=== PATIENT | female | born 1975 | race Caucasian/White ===

== ENCOUNTER → 2020-12-11 | Outpatient (CLI) | payer MEDICARE, OTHER ==
[2020-12-11 15:56] LABS: HEMOGLOBIN 14.5 gm/dl (12.3-15.3); RED BLOOD COUNT 4.48 M/UL (4.00-5.10)
[2020-12-11 16:46] LABS: BUN/CREATININE RATIO 15 (0-10)
[2020-12-12 16:14] LABS: RNP ANTIBODIES <0.2 AI (0.0-0.9); SJOGREN'S ANTI-SS-A <0.2 AI (0.0-0.9); SJOGREN'S ANTI-SS-B <0.2 AI (0.0-0.9); SMITH ANTIBODIES <0.2 AI (0.0-0.9)
== END ==
LOC: LAB 13:07
PROVIDERS: Internal Medicine
DX: M25.50 Pain in unspecified joint (principal); D89.89 Other specified disorders involving the immune mechanism, not elsewhere classified; Z79.1 Long term (current) use of non-steroidal anti-inflammatories (NSAID)
CPT/HCPCS: 36415; 73130; 80053; 83520; 85025; 85652; 86140; 86235